=== PATIENT | male | born 1990 | race Caucasian/White ===

== ENCOUNTER 2017-02-25 00:39 | Emergency (ER) | payer BC, OTHER ==
[~2017-02-25] VITALS: Ht 170.2 cm; Wt 70.3 kg
[~2017-02-25 00:39] MED LIST: AUGMENTIN875 M1; IBUPROFEN800 MG
[2017-02-25] MEDS ORDERED: NO MEDICATIONS (01:09)
== END 2017-02-25 03:26 | disposition home or self-care (01) ==
LOC: SED 00:39
DX: S61.411A Laceration without foreign body of right hand, initial encounter (principal); W26.0XXA Contact with knife, initial encounter; Y92.009 Unspecified place in unspecified non-institutional (private) residence as the place of occurrence of the external cause
CPT/HCPCS: 12001; 99283

== ENCOUNTER 2017-03-28 21:04 | Emergency (ER) | payer BC, OTHER ==
[~2017-03-28] VITALS: Ht 170.2 cm; Wt 70.3 kg
--- NOTE | ~2017-03-28 | CR211 ---
[facility]. [facility] A Service of [facility] & [facility] & [facility] RADIOLOGY TEXT RESULTS PATIENT: WALLY ELLER LOCATION: SED : 88 UNIT #: [id number] AGE: [address]: LEFTY HERNANDEZ SEX: M ORDER DR: [id number] [place] [place] [id number] E MR#: [id number] Acc #: [id number] NAME: WALLY ELLER : 1990 SEX: M STUDY DATE/TIME: 03/28/2017 22:20 UNIT: SED ROOM: STUDY DESCRIPTION: CR Ribs Uni 2 View W PA Ch Rt Attending Physician: Merna Feliciano Ordering Physician: Merna Feliciano Primary Care Physician: No Primary Care Physician MEDICAL IMAGING REPORT This report is preliminary unless electronic signature is present. EXAMINATION PA chest with AP and oblique views of the right ribs. COMPARISON None. INDICATIONS 26-year-old male with right posterior rib pain after falling off a porch 2 days ago. FINDINGS Cardiomediastinal silhouette is within normal limits. No evidence of pneumothorax, pleural effusion or acute airspace disease. No evidence of rib fracture. IMPRESSION No acute radiographic abnormality of the chest. No evidence of rib fracture. Dictated by... Delfino Bowman M.D. THIS IS AN ELECTRONICALLY VERIFIED REPORT Delfino Bowman M.D. at 04/02/2017 10:55 PM Darvin TD: 03/29/2017 18:00 JOB #: [id number] MEDICAL IMAGING REPORT Page 1 of 1
[~2017-03-28 21:04] MED LIST changes: +NO MEDICATIONS
[2017-03-28 22:20] LABS: URINE SOURCE CLEAN CATCH
[2017-03-28 22:24] LABS: URINE APPEARANCE CLEAR; URINE BILIRUBIN NEG (NEG); URINE BLOOD NEG (NEG); URINE COLOR YELLOW; URINE GLUCOSE NEG (NORM); URINE KETONE NEG (NEG); URINE LEUKOCYTE ESTERASE NEG (NEG); URINE NITRATE NEG (NEG); URINE PH 8.5 (5-8); URINE PROTEIN NEG (NEG); URINE SPECIFIC GRAVITY 1.015 (1.003-1.035); URINE UROBILINOGEN 0.2 MG/DL (NORM)
[2017-03-28 22:27] LABS: MICRO INDICATED? NO
== END 2017-03-28 23:02 | disposition home or self-care (01) ==
LOC: SED 21:04
PROVIDERS: Physician Assistant
DX: S00.81XA Abrasion of other part of head, initial encounter (principal); S40.211A Abrasion of right shoulder, initial encounter; R07.81 Pleurodynia; J45.909 Unspecified asthma, uncomplicated; F17.210 Nicotine dependence, cigarettes, uncomplicated; Z98.890 Other specified postprocedural states; W19.XXXA Unspecified fall, initial encounter; Y92.9 Unspecified place or not applicable
CPT/HCPCS: 71101; 81003; 99283